=== PATIENT | female | born 1985 | race Caucasian/White ===

== ENCOUNTER 2018-01-27 04:51 | Inpatient (IN) | END 2018-01-30 17:43 | disposition home or self-care (01) | DRG 857 ==

== ENCOUNTER 2018-12-31 03:30 | Emergency (ER) | payer MEDICAID ==
[~2018-12-31] VITALS: Ht 160 cm; Wt 92.2 kg
[~2018-12-31 03:30] MED LIST: ACET-2047 PO; NAPR-985 PO; SULF-182 PO
[2018-12-31 03:35] VITALS: BP 140/85; PULSE 88; RESP 20; Ht 160 cm; Wt 92.2 kg
[2018-12-31] MEDS ORDERED: IBUP-1542 PO (06:25)
[2018-12-31] MEDS ORDERED: CEPH-443 PO (06:25)
[2018-12-31] MEDS ORDERED: HYDROCODONE/APAP (5/325) TAB PO ONE (06:30)
[2018-12-31] MEDS ORDERED: LIDOCAINE 2% (MDV) 20 ML INJ INJ ONE (06:30)
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
== END 2018-12-31 07:11 | disposition home or self-care (01) ==
LOC: FTE 03:30
DX: S20.161A Insect bite (nonvenomous) of breast, right breast, initial encounter (principal); L02.411 Cutaneous abscess of right axilla; J45.909 Unspecified asthma, uncomplicated; W57.XXXA Bitten or stung by nonvenomous insect and other nonvenomous arthropods, initial encounter; Y92.9 Unspecified place or not applicable